=== PATIENT | female | born 1990 | race Caucasian/White ===

== ENCOUNTER 2017-09-25 08:01 | Observation (INO) | payer OTHER ==
[2017-09-25 09:04] VITALS: BP 128/81; PULSE 104
[2017-09-25 09:11] LABS: Amphetamine,Urine NEG. (NEGATIVE); Barbiturate,Urine NEG. (NEGATIVE); Benzodiazepine,Urine NEG. (NEGATIVE); Cocaine,Urine NEG. (NEGATIVE); Methadone,Urine NEG. (NEGATIVE); Opiate,Urine NEG. (NEGATIVE); PCP,Urine NEG. (NEGATIVE); THC,Urine NEG. (NEGATIVE)
[2017-09-25 09:11] LABS: Appearance CLEAR (CLEAR); Bilirubin NEGATIVE (NEGATIVE); Blood NEGATIVE Ery/ul (0-5); Glucose NEGATIVE (NEGATIVE); Ketones SMALL (NEGATIVE); Leukocyte Esterase NEGATIVE (NEGATIVE); Nitrite NEGATIVE (NEGATIVE); Protein,Urine Dip NEGATIVE (Negative); Specific Gravity 1.015 (1.005-1.025); Urobilinogen NORMAL mg/dL (0-1)
== END 2017-09-25 11:35 | disposition home or self-care (01) ==
LOC: OB 08:01
PROVIDERS: ADMIT Family Medicine; ATTEND Family Medicine
DX: Z34.83 Encounter for supervision of other normal pregnancy, third trimester (principal)
CPT/HCPCS: 80307; 81002; G0378

== ENCOUNTER 2017-09-27 15:57 | Observation (INO) | payer OTHER ==
[2017-09-27 16:39] LABS: BASOPHIL % 0.3 % (0.0-0.4); Basophil (Absolute #) 0.02 (0-0.4); Eosinophil % 0.9 % (0.00-5.0); Eosinophil (Absolute #) 0.06 (0-0.5); Granulocyte Absolute (ANC) 4.41 (1.4-6.9); Granulocytes % 65.8 % (36.0-66.0); Hematocrit 33.7 % (35-47); Hemoglobin 10.7 gm/dl (12.0-16.0); Lymphocyte (Absolute #) 1.63 (1.0-4.6); Lymphocytes % 24.3 % (24.0-44.0); Mean Cell Volume 93.9 fl (78-100); Mean Corpuscular Hemoglobin 29.8 pg (26-32); Mean Corpuscular Hgb Concent. 31.8 g/dl (32-36); Mean Platelet Volume 11.9 fl (6-9.5); Monocyte (Absolute #) 0.58 (0.0-1.3); Monocytes % 8.7 % (0.0-12.0); Platelet Count 270 K/mm3 (150-450); Red Blood Count 3.59 M/mm3 (4.1-5.4); Red Cell Distribution Width 13.5 % (11.5-14.0); White Blood Count 6.7 K/mm3 (4.0-10.5)
[2017-09-27 17:30] LABS: ALBUMIN 2.4 g/dL (3.4-5.0); ALKALINE PHOSPHATASE 137 U/L (46-116); ANION GAP 13.4 MEQ/L (5-15); BLOOD UREA NITROGEN 8 mg/dL (9-20); CHLORIDE 105 mEq/L (98-107); Calcium 8.8 mg/dL (8.5-10.1); Carbon Dioxide 24.1 mEq/L (21-32); EST GLOMERULAR FILTRATION RATE > 60 ML/MIN; Glucose 87 MG/DL (70-110); Potassium 3.9 mEq/L (3.5-5.1); SGOT/AST 24 U/L (15-37); SGPT/ALT 13 U/L (12-78); SODIUM 139 mEq/L (136-145); Total Protein 6.9 gm/dL (6.4-8.2)
[2017-09-27 23:25] VITALS: BP 132/72; PULSE 96
== END 2017-09-27 23:10 | disposition home or self-care (01) ==
LOC: OB 15:57
PROVIDERS: ADMIT Family Medicine; ATTEND Family Medicine
DX: Z34.83 Encounter for supervision of other normal pregnancy, third trimester (principal)
CPT/HCPCS: 36415; 59025; 80053; 84550; 85025; G0378

== ENCOUNTER 2017-09-29 14:51 | Inpatient (IN) | payer OTHER ==
[2017-09-29] MEDS ORDERED: Ephedrine Sulfate 50 MG/ML IV PRN (15:02)
[2017-09-29] MEDS ORDERED: Lactated Ringers 1,000 ML IV ONE (15:02)
[2017-09-29] MEDS ORDERED: OB EPIDURAL NAROPIN/SUFENTANIL IN NACL EPIDURAL PRN (15:02)
[2017-09-29 15:22] LABS: Hematocrit 36.3 % (35-47); Hemoglobin 11.6 gm/dl (12.0-16.0); Mean Cell Volume 92.6 fl (78-100); Mean Platelet Volume 11.5 fl (6-9.5); Platelet Count 259 K/mm3 (150-450); Red Blood Count 3.92 M/mm3 (4.1-5.4); Red Cell Distribution Width 13.3 % (11.5-14.0); White Blood Count 11.4 K/mm3 (4.0-10.5)
[2017-09-29 15:29] LABS: Mean Corpuscular Hemoglobin 29.5 pg (26-32)
[2017-09-29] MEDS ORDERED: XYLOCAINE 1% HCL 20 ML MDV IJ PRN (15:29)
[2017-09-29] MEDS ORDERED: PITOCIN 30 UNITS/ LR 500 ML 500 ML IV SCH (15:30)
[2017-09-29] MEDS: Lactated Ringers 1,000 ML IV SCH ×2 (16:10→17:30)
[2017-09-29] MEDS ORDERED: NORCO 5/325 MG PO PRN (18:33)
[2017-09-29] MEDS ORDERED: CORTISONE 1% CREAM TP PRN (18:33)
[2017-09-29] MEDS ORDERED: Anucort-HC SUPPOSITORY PR PRN (18:33)
[2017-09-29] MEDS ORDERED: Ambien 10 MG PO PRN (18:33)
[2017-09-29] MEDS ORDERED: Dulcolax 10 MG SUPP PR PRN (18:33)
[2017-09-29] MEDS ORDERED: Mylicon 80MG PO PRN (18:33)
[2017-09-29] MEDS ORDERED: LANSINOH 40 GM TOP PRN (18:33)
[2017-09-29] MEDS: MOTRIN 400 MG PO PRN (20:13)
[2017-09-29] MEDS: Dermoplast Spray TP PRN (20:39)
[2017-09-29] MEDS: TUCKS TP PRN (20:39)
[2017-09-29] MEDS: Colace 100 MG PO SCH (21:22)
[2017-09-29 22:19] LABS: BAND 4 % (0.0-2.0); Lymphocytes 17 % (24-44); Monocyte 3 % (0.0-12.0); Neutrophils 76 % (36.0-66.0); Platelet Estimate NORMAL (NORMAL); Total Cells Counted 100
[2017-09-30] MEDS: MOTRIN 400 MG PO PRN ×4 (02:00→22:26)
[2017-09-30] MEDS: TYLENOL EXTRA STRENGTH 500 MG PO PRN ×4 (05:22→19:37)
[2017-09-30 06:09] LABS: BASOPHIL % 0.1 % (0.0-0.4); Basophil (Absolute #) 0.01 (0-0.4); Eosinophil % 0.8 % (0.00-5.0); Eosinophil (Absolute #) 0.11 (0-0.5); Granulocyte Absolute (ANC) 9.36 (1.4-6.9); Hematocrit 30.9 % (35-47); Hemoglobin 9.8 gm/dl (12.0-16.0); Lymphocyte (Absolute #) 2.67 (1.0-4.6); Lymphocytes % 20.2 % (24.0-44.0); Mean Cell Volume 94.5 fl (78-100); Mean Corpuscular Hgb Concent. 31.7 g/dl (32-36); Monocyte (Absolute #) 1.04 (0.0-1.3); Monocytes % 7.9 % (0.0-12.0); Platelet Count 208 K/mm3 (150-450); Red Blood Count 3.27 M/mm3 (4.1-5.4); Red Cell Distribution Width 13.4 % (11.5-14.0); White Blood Count 13.2 K/mm3 (4.0-10.5)
[2017-09-30 06:15] LABS: Mean Corpuscular Hemoglobin 29.9 pg (26-32)
[2017-09-30] MEDS: FERREX 150 PO SCH (09:09)
[2017-09-30] MEDS: Colace 100 MG PO SCH ×2 (09:09→22:26)
[2017-10-01] MEDS: TYLENOL EXTRA STRENGTH 500 MG PO PRN ×2 (01:35→10:24)
[2017-10-01] MEDS: Dermoplast Spray TP PRN (01:46)
[2017-10-01] MEDS: TUCKS TP PRN (01:47)
[2017-10-01] MEDS: MOTRIN 400 MG PO PRN ×2 (04:28→13:34)
--- NOTE | 2017-10-01 08:25 | PCM.DS ---
Discharge Summary Date of Admission: 09/29/17 14:51 Admitting Physician: ALLISON MORELOS Consults: Consults on Case 09/29/17 18:34 Notify Physician ROUTINE Primary Care Provider: ALLISON MORELOS Allergies Allergies No Known Drug Allergies Allergy (Verified 09/29/17 21:07) Hospital Summary - Hospital Course Hospital Course: Pt was 27 yo admitted at 39w 5d in active labor with SROM. She received her epidural and had some FHT decelerations that resolved. I came and ruptured the bulging bag and she delivered vigorous female over intact perineum. She has done great post , no complaints. Ready to d/c home today. - Vitals & Intake/Output Vital Signs: Vital Signs Temperature 97.8 F 10/01/17 02:00 Pulse Rate 92 H 10/01/17 02:00 Respiratory Rate 18 10/01/17 02:00 Blood Pressure 136/72 10/01/17 02:00 O2 Sat by Pulse Oximetry Intake & Output: Intake & Output 09/28/17 09/29/17 09/30/17 10/01/17 11:59 11:59 11:59 11:59 Intake Total 3568 2950 Output Total 20 Balance 3548 2950 Weight 166 kg - Lab Result Diagrams: 09/30/17 05:30 Discharge Exam General Appearance: no apparent distress, alert Neurologic Exam: oriented x 3, cooperative Skin Exam: normal color, warm, dry, No rash Ears, Nose, Throat Exam: moist mucous membranes Respiratory Exam: normal breath sounds, lungs clear, No crackles/rales, No rhonchi, No wheezing Cardiovascular Exam: regular rate/rhythm, normal heart sounds, No murmur Gastrointestinal/Abdomen Exam: soft, normal bowel sounds, other (fundus firm at umbilicus) Extremity Exam: No pedal edema, No swelling Back Exam: normal inspection, No rash Final Diagnosis/Problem List - Final Discharge Diagnosis/Problem (1) Vaginal delivery Current Visit: No Status: Acute Assessment & Plan: PPD #2 - home when baby is 48h old. (2) Anemia Current Visit: No Status: Acute Assessment & Plan: Home on iron. - Discharge Disposition: Home, Self-Care Condition: Good Prescriptions: New Docusate Sodium 100 mg [Colace 100 MG] 100 mg PO BID PRN #60 capsule PRN Reason: Constipation Ferrous Sulfate 325 mg PO DAILY #30 tablet Continue Vits W-Ca,Fe,FA(<1Mg) [] 1 tab PO DAILY Follow up with: ALLISON MORELOS [Primary Care Provider] - 1 Week
[2017-10-01] MEDS: FERREX 150 PO SCH (10:24)
[2017-10-01] MEDS: Colace 100 MG PO SCH (10:24)
[2017-10-01 16:40] VITALS: BP 130/83; PULSE 87
== END 2017-10-01 19:45 | disposition home or self-care (01) | DRG 775 ==
LOC: OBSVTOIN 14:51 → OB 14:51
PROVIDERS: ADMIT Family Medicine; ATTEND Family Medicine
PROC: 10E0XZZ Delivery of Products of Conception, External Approach (ICD-10-PCS; principal; 2017-09-29)
DX: O42.02 Full-term premature rupture of membranes, onset of labor within 24 hours of rupture (principal); Z37.0 Single live birth; Z3A.39 39 weeks gestation of pregnancy; D64.9 Anemia, unspecified
CPT/HCPCS: 01967; 36415; 85007; 85025; 85027; G0378; J2590; J2795; A9270-GY

== ENCOUNTER 2017-12-24 18:41 | Emergency (ER) | payer OTHER ==
[2017-12-24 18:55] VITALS: O2SAT 99
[2017-12-24] MEDS ORDERED: BABY ASPIRIN 81 MG CHEW PO ONE (19:35)
[2017-12-24] MEDS ORDERED: Sodium Chloride 0.9% 1000 ML 1,000 ML ONE (19:41)
--- NOTE | 2017-12-24 19:43 | ERPHSYRPT ---
- History of Present Illness Time Seen by Provider: 12/24/17 19:20 Source: patient Exam Limitations: no limitations Patient Subjective Stated Complaint: here for swelling to left lower arm today, breast feeding at present time Triage Nursing Assessment: left lower arm swollen, warm to touch, pt denies any injury Physician History: TWO DAYS AGO PT FELL AT HOME IN THE GARAGE WITH RESULTANT RIGHT HIP/FEMUR PAIN. PT ALSO GOT A PAPER CUT ON HER LEFT INDEX FINGER 2 DAYS AGO AFTER WHICH HER LEFT FOREARM FELT STRANGE AND BECAME SWOLLEN. PT NOTICED RED STREAKING OVER THE LEFT ANTECUBITAL AREA DURING THIS ER VISIT. PT ALSO HAS HAD SHARP INTERMITTENT LEFT ANTERIOR CHEST PAIN FOR THE PAST 2 DAYS LASTING UP TO 2 MINUTES PER EPISODE. Allergies/Adverse Reactions: No Known Drug Allergies Allergy (Verified 12/24/17 18:55) Home Medications: Vits W-Ca,Fe,FA(<1Mg) [] 1 tab PO DAILY 12/30/15 [History] Hx Tetanus, Diphtheria Vaccination/Date Given: Yes Hx Influenza Vaccination/Date Given: No Hx Pneumococcal Vaccination/Date Given: No Immunizations Up to Date: Yes - Review of Systems Constitutional: No Fever Cardiac: Chest Pain Musculoskeletal: Other (LEFT FOREARM SWELLING; RIGHT HIP/THIGH PAIN.) Skin: Other (RED STREAKING OVER THE LEFT ANTECUBITAL AREA) All Other Systems: Reviewed and Negative - Past Medical History Pertinent Past Medical History: No Respiratory History: Asthma - Past Surgical History Past Surgical History: No - Social History Smoking Status: Never smoker Exposure to second hand smoke: No Drug Use: none Patient Lives Alone: No - Female History Hx Last Menstrual Period: 2016 Hx Now: (unsure) - Nursing Vital Signs Nursing Vital Signs: Initial Vital Signs Temperature 98.0 F 12/24/17 18:51 Pulse Rate 107 H 12/24/17 18:51 Respiratory Rate 16 12/24/17 18:51 Blood Pressure 158/92 12/24/17 18:51 O2 Sat by Pulse Oximetry 99 12/24/17 18:51 Pain Scale Pain Intensity 0 - Physical Exam General Appearance: alert Eye Exam: PERRL/EOMI Ears, Nose, Throat Exam: pharynx normal, moist mucous membranes Neck Exam: normal inspection Respiratory Exam: lungs clear Cardiovascular Exam: normal heart sounds Gastrointestinal/Abdomen Exam: soft, normal bowel sounds Back Exam: normal range of motion Extremity Exam: normal range of motion, tenderness (MILD TENDERNESS AND EDEMA OVER THE LEFT FOREARM ) Neurologic Exam: alert, cooperative Lymphatic Exam: other (RED STREAKING OVER THE ANTECUBITAL AREA) SpO2 Interpretation: normal SpO2: 99 Oxygen Delivery: Room Air - Course Nursing assessment & vital signs reviewed: Yes EKG Interpreted by Me: RATE (97), Sinus Rhythm, NORMAL AXIS, NORMAL INTERVALS - CT Exams Chest CT Interpretation: Tele-radiologist Report (NO EVIDENCE OF PULMONARY EMBOLISM.) - Radiology Ultrasound Exam Left Venous Upper Extremity Ultrasound: Other (TECH REPORT: NO BLOOD CLOT SEEN.) Ordered Tests: Active Orders 24 hr Category Date Time Status Pediatric Assistant STAT Care 12/24/17 19:34 Active EKG-ER Only STAT Care 12/24/17 19:33 Active CHEST WITH CONTRAST [CT] Stat Exams 12/24/17 21:08 Taken FEMUR Stat Exams 12/24/17 19:35 Taken FOREARM Stat Exams 12/24/17 19:36 Taken PELVIS (1 OR 2 VIEWS) Stat Exams 12/24/17 19:35 Taken VENOUS UNILAT/LIMITED EXTREMIT [US] Stat Exams 12/24/17 21:00 Taken AMYLASE Stat Lab 12/24/17 19:58 Completed BLOOD CULTURE Stat Lab 12/24/17 21:28 Received CBC W DIFF Stat Lab 12/24/17 19:58 Completed CMP Stat Lab 12/24/17 19:58 Completed CULTURE,URINE Stat Lab 12/24/17 20:38 Received D-DIMER QUANTITATION Stat Lab 12/24/17 19:58 Completed HCG QUALITATIVE,SERUM Stat Lab 12/24/17 20:31 Completed LIPASE Stat Lab 12/24/17 19:58 Completed MAGNESIUM Stat Lab 12/24/17 19:58 Completed TROPONIN Q3H Lab 12/24/17 19:58 Completed UA W/ MICROSCOPIC Stat Lab 12/24/17 20:38 Completed Medication Summary Generic Name Dose Route Start Last Admin Trade Name Freq PRN Reason Stop Dose Admin Sodium Chloride 1,000 mls @ 100 mls/hr 12/24/17 19:45 12/24/17 21:35 Sodium Chloride 0.9% 1000 Ml IV 01/23/18 19:44 100 mls/hr .Q10H LANI Administration Discontinued Medications Generic Name Dose Route Start Last Admin Trade Name Freq PRN Reason Stop Dose Admin Aspirin 324 mg 12/24/17 19:35 12/24/17 22:58 Baby Aspirin 81 Mg Chew PO 12/24/17 19:36 Not Given STAT ONE Clindamycin HCl/Dextrose 600 mg in 50 mls @ 100 mls/hr 12/24/17 21:35 21:45 Clindamycin-D5w 600 Mg/50 Ml IV 12/24/17 22:04 100 mls/hr STAT STA Administration Clindamycin HCl/Dextrose Confirm 12/24/17 21:38 Clindamycin-D5w 600 Mg/50 Ml Administered 12/24/17 21:39 Dose 600 mg in 50 mls @ ud IV .STK-MED ONE Lab/Rad Data: Laboratory Result Diagrams 12/24/17 19:58 12/24/17 19:58 Laboratory Results 12/24/17 12/24/17 12/24/17 Range/Units 20:38 20:31 19:58 WBC (4.0-10.5) K/mm3 RBC (4.1-5.4) M/mm3 Hgb (12.0-16.0) gm/dl Hct (35-47) % MCV (78-100) fl MCH (26-32) pg MCHC (32-36) g/dl RDW (11.5-14.0) % Plt Count (150-450) K/mm3 MPV (6-9.5) fl Gran % (36.0-66.0) % Eos # (Auto) (0-0.5) Absolute Lymphs (auto) (1.0-4.6) Absolute Monos (auto) (0.0-1.3) Lymphocytes % (24.0-44.0) % Monocytes % (0.0-12.0) % Eosinophils % (0.00-5.0) % Basophils % (0.0-0.4) % Absolute Granulocytes (1.4-6.9) Basophils # (0-0.4) D-Dimer (215-500) ng/mL Sodium (137-145) mmol/L Potassium (3.5-5.1) mmol/L Chloride (98-107) mmol/L Carbon Dioxide (22-30) mmol/L Anion Gap (5-15) MEQ/L BUN (7-17) mg/dL Creatinine (0.52-1.04) mg/dL Estimated GFR ML/MIN Glucose (74-106) mg/dL Calcium (8.4-10.2) mg/dL Magnesium (1.6-2.3) mg/dL Total Bilirubin (0.2-1.3) mg/dL AST (14-36) U/L ALT (0-35) U/L Alkaline Phosphatase (38-126) U/L Troponin I < 0.012 (0.000-0.034) ng/mL Serum Total Protein (6.3-8.2) g/dL Albumin (3.5-5.0) g/dL Amylase (30-110) U/L Lipase (23-300) U/L Serum , Qual NEGATIVE (Negative) Ur Collection Type VOID Urine Color YELLOW (YELLOW) Urine Appearance CLEAR (CLEAR) Urine pH 6.0 (5-6) Ur Specific [place] 1.015 (1.005-1.025) Urine Protein NEGATIVE (Negative) Urine Ketones NEGATIVE (NEGATIVE) Urine Blood TRACE NON-HEM (0-5) Paolo/ul Urine Nitrite NEGATIVE (NEGATIVE) Urine Bilirubin NEGATIVE (NEGATIVE) Urine Urobilinogen NORMAL (0-1) mg/dL Ur Leukocyte Esterase TRACE (NEGATIVE) Urine Microscopic RBC 2-5 (0-2) /HPF Urine Microscopic WBC 5-10 (0-5) /HPF Ur Epithelial Cells MODERATE (FEW) /HPF Urine Bacteria MODERATE (NEGATIVE) /HPF Urine Mucus SLIGHT (NEGATIVE) /HPF Urine Culture Reflexed YES (NO) Urine Glucose NEGATIVE (NEGATIVE) mg/dL Specimen Received 12/24/17 2030 12/24/17 12/24/17 12/24/17 Range/Units 19:58 19:58 19:58 WBC 5.3 (4.0-10.5) K/mm3 RBC 4.57 (4.1-5.4) M/mm3 Hgb 13.8 (12.0-16.0) gm/dl Hct 41.2 (35-47) % MCV 90.2 (78-100) fl MCH 30.2 (26-32) pg MCHC 33.5 (32-36) g/dl RDW 11.8 (11.5-14.0) % Plt Count 240 (150-450) K/mm3 MPV 10.6 H (6-9.5) fl Gran % 51.0 (36.0-66.0) % Eos # (Auto) 0.15 (0-0.5) Absolute Lymphs (auto) 1.89 (1.0-4.6) Absolute Monos (auto) 0.52 (0.0-1.3) Lymphocytes % 36.0 (24.0-44.0) % Monocytes % 9.9 (0.0-12.0) % Eosinophils % 2.9 (0.00-5.0) % Basophils % 0.2 (0.0-0.4) % Absolute Granulocytes 2.68 (1.4-6.9) Basophils # 0.01 (0-0.4) D-Dimer 789.42 H* (215-500) ng/mL Sodium 143 (137-145) mmol/L Potassium 4.4 (3.5-5.1) mmol/L Chloride 103 (98-107) mmol/L Carbon Dioxide 29 (22-30) mmol/L Anion Gap 15.3 H (5-15) MEQ/L BUN 18 H (7-17) mg/dL Creatinine 0.87 (0.52-1.04) mg/dL Estimated GFR > 60.0 ML/MIN Glucose 107 H (74-106) mg/dL Calcium 9.6 (8.4-10.2) mg/dL Magnesium 1.8 (1.6-2.3) mg/dL Total Bilirubin 0.30 (0.2-1.3) mg/dL AST 24 (14-36) U/L ALT 34 (0-35) U/L Alkaline Phosphatase 79 (38-126) U/L Troponin I (0.000-0.034) ng/mL Serum Total Protein 7.9 (6.3-8.2) g/dL Albumin 4.4 (3.5-5.0) g/dL Amylase 85 (30-110) U/L Lipase 99 (23-300) U/L Serum , Qual (Negative) Ur Collection Type Urine Color (YELLOW) Urine Appearance (CLEAR) Urine pH (5-6) Ur Specific [place] (1.005-1.025) Urine Protein (Negative) Urine Ketones (NEGATIVE) Urine Blood (0-5) Paolo/ul Urine Nitrite (NEGATIVE) Urine Bilirubin (NEGATIVE) Urine Urobilinogen (0-1) mg/dL Ur Leukocyte Esterase (NEGATIVE) Urine Microscopic RBC (0-2) /HPF Urine Microscopic WBC (0-5) /HPF Ur Epithelial Cells (FEW) /HPF Urine Bacteria (NEGATIVE) /HPF Urine Mucus (NEGATIVE) /HPF Urine Culture Reflexed (NO) Urine Glucose (NEGATIVE) mg/dL Specimen Received - Departure Time of Disposition: 01:13 Departure Disposition: Home Clinical Impression: LYMPHANGITIS OF LEFT FOREARM, UTI, CHEST PAIN, RIGHT HIP SPRAIN Condition: Stable Critical Care Time: No Referrals: ALLISON MORELOS [Primary Care Provider] - Instructions: Urinary Tract Infections in Adults, Chest Pain Additional Instructions: FOLLOW UP WITH PRIVATE DOCTOR TOMORROW. ELEVATE LEFT FOREARM ABOVE HEART LEVEL FOR 48 HOURS. Prescriptions: Clindamycin HCl 300 mg PO Q6H #40 capsule
[2017-12-24] MEDS ORDERED: Sodium Chloride 0.9% 1000 ML 1,000 ML IV SCH (19:45)
[2017-12-24 20:02] LABS: BASOPHIL % 0.2 % (0.0-0.4); Basophil (Absolute #) 0.01 (0-0.4); Eosinophil % 2.9 % (0.00-5.0); Eosinophil (Absolute #) 0.15 (0-0.5); Granulocyte Absolute (ANC) 2.68 (1.4-6.9); Hematocrit 41.2 % (35-47); Hemoglobin 13.8 gm/dl (12.0-16.0); Lymphocyte (Absolute #) 1.89 (1.0-4.6); Mean Cell Volume 90.2 fl (78-100); Mean Corpuscular Hemoglobin 30.2 pg (26-32); Mean Corpuscular Hgb Concent. 33.5 g/dl (32-36); Mean Platelet Volume 10.6 fl (6-9.5); Monocyte (Absolute #) 0.52 (0.0-1.3); Monocytes % 9.9 % (0.0-12.0); Platelet Count 240 K/mm3 (150-450); Red Blood Count 4.57 M/mm3 (4.1-5.4); Red Cell Distribution Width 11.8 % (11.5-14.0); White Blood Count 5.3 K/mm3 (4.0-10.5)
[2017-12-24 20:23] LABS: ALBUMIN 4.4 g/dL (3.5-5.0); ALKALINE PHOSPHATASE 79 U/L (38-126); AMYLASE 85 U/L (30-110); ANION GAP 15.3 MEQ/L (5-15); BLOOD UREA NITROGEN 18 mg/dL (7-17); CHLORIDE 103 mmol/L (98-107); Calcium 9.6 mg/dL (8.4-10.2); Carbon Dioxide 29 mmol/L (22-30); Creatinine 1 0.87 mg/dL (0.52-1.04); Glucose 107 mg/dL (74-106); LIPASE 99 U/L (23-300); Potassium 4.4 mmol/L (3.5-5.1); SGOT/AST 24 U/L (14-36); SGPT/ALT 34 U/L (0-35); SODIUM 143 mmol/L (137-145); Total Protein 7.9 g/dL (6.3-8.2)
[2017-12-24 20:55] LABS: Appearance CLEAR (CLEAR)
[2017-12-24 20:56] LABS: Bacteria MODERATE /HPF (NEGATIVE); Bilirubin NEGATIVE (NEGATIVE); Blood TRACE NON-HEM Ery/ul (0-5); Epithelial Cells MODERATE /HPF (FEW); Glucose NEGATIVE (NEGATIVE); Ketones NEGATIVE (NEGATIVE); Leukocyte Esterase TRACE (NEGATIVE); Mucus SLIGHT /HPF (NEGATIVE); Nitrite NEGATIVE (NEGATIVE); Protein,Urine Dip NEGATIVE (Negative); Specific Gravity 1.015 (1.005-1.025); Urobilinogen NORMAL mg/dL (0-1)
[2017-12-24] MEDS ORDERED: CLINDAMYCIN-D5W 600 MG/50 ML*** 600 MG/50 ML BAG IV STA (21:35)
[2017-12-24] MEDS ORDERED: CLINDAMYCIN-D5W 600 MG/50 ML*** 600 MG/50 ML BAG IV ONE (21:38)
[2017-12-24 22:53] VITALS: BP 122/71; PULSE 90
[2017-12-25] MEDS ORDERED: CLEOCIN 150 MG CAPSULE PO ONE (01:14)
[2017-12-25] MEDS ORDERED: CLEOCIN 150 MG CAPSULE ONE (01:19)
--- NOTE | 2017-12-25 07:54 | XRAY ---
Indication: Left forearm pain/edema. Two-dimensional sonogram and color Doppler imaging of the major venous vessels of the left upper extremity was performed. Comparison: None No thrombus seen in the visualized left internal jugular, subclavian, axillary, brachial, basilic, cephalic, median cubital, radial, and ulnar veins. Veins demonstrate normal compressibility. Venous waveforms are normal. Impression: Left upper extremity negative for DVT. Comment: Preliminary report was given.
--- NOTE | 2017-12-25 08:13 | XRAY ---
Indication: Chest pain. Elevated d-dimer. Multiple contiguous axial images obtained through the chest using 80 cc Isovue 370 contrast and PE protocol. Comparison: None There is good opacification of the pulmonary arteries. No filling defect or pulmonary embolus. Heart is not enlarged. Aorta is normal in course and caliber. No pathologic mediastinal/hilar lymphadenopathy. Examination of the lung parenchyma demonstrates minimal lingular and right middle lobe fibrosis/scarring. No suspicious pulmonary mass, infiltrate, or effusion. Bony thorax intact. Limited upper abdomen unremarkable. Impression: Negative pulmonary embolus. No acute cardiopulmonary abnormalities. Comment: Preliminary interpretation was made by [facility]. No discrepancy. CTDI 14.17
--- NOTE | 2017-12-25 08:14 | XRAY ---
Indication: Pain and bruising following fall. Comparison: None 2 views of the right femur demonstrates normal bones, articulation, and soft tissues.
--- NOTE | 2017-12-25 08:15 | XRAY ---
Indication: Pain and bruising following fall. Comparison: None 2 views of the left forearm demonstrates normal bones, articulation, and soft tissues.
--- NOTE | 2017-12-25 08:15 | XRAY ---
Indication: Pain and bruising following fall. Comparison: None AP pelvis demonstrates normal bones, articulation, and soft tissues.
== END 2017-12-25 01:26 | disposition home or self-care (01) ==
LOC: ED 18:41
DX: I89.1 Lymphangitis (principal); N39.0 Urinary tract infection, site not specified; R07.9 Chest pain, unspecified; M79.89 Other specified soft tissue disorders; S73.101A Unspecified sprain of right hip, initial encounter; W19.XXXA Unspecified fall, initial encounter
CPT/HCPCS: 36415; 71260; 72170; 73090; 73552; 80053; 81000; 82150; 83690; 83735; 84484; 84703; 85025; 85379; 87040; 87086; 93005; 93041; 93971; 96360; 96365; 99284; A9270-GY

== ENCOUNTER 2019-04-21 16:12 | Observation (INO) | payer OTHER ==
[2019-04-21 16:50] VITALS: BP 120/69; PULSE 85
--- NOTE | 2019-04-21 17:08 | XRAY ---
Indication: Evaluate KAY. Gestational diabetes. Limited OB ultrasound performed to evaluate KAY. There is a single viable intrauterine with heart rate 129 BPM. Four-quadrant KAY is 28.4 cm favoring polyhydramnios. This was 21.2 cm on April 12, 2019.
== END 2019-04-21 17:15 | disposition home or self-care (01) ==
LOC: OB 16:12
PROVIDERS: ADMIT Family Medicine; ATTEND Family Medicine
DX: Z34.83 Encounter for supervision of other normal pregnancy, third trimester (principal)
CPT/HCPCS: 59025; 76815; G0378

== ENCOUNTER 2019-04-26 09:58 | Observation (INO) | payer OTHER ==
[2019-04-26 10:54] VITALS: BP 122/72; PULSE 100
--- NOTE | 2019-04-26 12:08 | XRAY ---
Indication: Evaluate KAY. Limited OB ultrasound performed to evaluate KAY. There is a single intrauterine . Four-quadrant KAY is 19.9 cm, previously 28.4 cm on April 21, 2019.
== END 2019-04-26 11:52 | disposition home or self-care (01) ==
LOC: OB 09:58
PROVIDERS: ADMIT Family Medicine; ATTEND Family Medicine
DX: Z34.83 Encounter for supervision of other normal pregnancy, third trimester (principal)
CPT/HCPCS: 59025; 76815; G0378

== ENCOUNTER 2019-04-28 13:41 | Observation (INO) | payer OTHER ==
[2019-04-28 14:01] VITALS: BP 120/64; PULSE 92
== END 2019-04-28 16:00 | disposition home or self-care (01) ==
LOC: OB 13:41
PROVIDERS: ADMIT Family Medicine; ATTEND Family Medicine
DX: Z34.83 Encounter for supervision of other normal pregnancy, third trimester (principal)
CPT/HCPCS: 59025; G0378

== ENCOUNTER 2019-05-02 16:50 | Observation (INO) | payer OTHER ==
[2019-05-02 17:19] VITALS: PULSE 85
[2019-05-02 18:06] VITALS: BP 136/75
== END 2019-05-02 17:58 | disposition home or self-care (01) ==
LOC: OB 16:50
PROVIDERS: ADMIT Family Medicine; ATTEND Family Medicine
DX: Z34.83 Encounter for supervision of other normal pregnancy, third trimester (principal)
CPT/HCPCS: 59025; G0378

== ENCOUNTER 2019-05-04 10:59 | Observation (INO) | payer OTHER ==
[2019-05-04 12:04] VITALS: BP 110/59; PULSE 82
--- NOTE | 2019-05-04 13:02 | XRAY ---
Indication: Evaluate KAY. Gestational diabetes. Limited OB ultrasound performed to evaluate KAY. There is a single viable intrauterine with heart rate 139 bpm. 4 quadrant KAY is 28.1 cm, previously 19.9 cm April 27, 2019.
--- NOTE | 2019-05-04 14:44 | XRAY ---
Indication: Oligohydramnios. well-being. 2-dimensional OB ultrasound performed. Comparison: April 27, 2019. Again there is a single viable intrauterine in cephalic presentation. heart rate 139 bpm. anatomy previously documented. Again anterior placenta without abruption/previa. BPD measures 8.93 cm corresponding to 36 weeks 1 day. HC measures 32.22 cm corresponding to 36 weeks 3 days. AC measures 36.72 cm corresponding to 40 weeks 5 days. FL measures 7.63 cm corresponding to 39 weeks 0 days. KAY is 29.8 cm, previously 19.9 cm. Impression: Again single viable intrauterine with mean gestational age 38 weeks 1 day. There has been progression of with fetus now measuring 5 days smaller since last exam. Also new finding polyhydramnios.
--- NOTE | 2019-05-04 14:47 | XRAY ---
Indication: well-being. Ultrasound biophysical profile study was performed. Comparison: None There is a single viable intrauterine intrauterine with heart rate 139 bpm. Four-quadrant KAY is 29.8 cm, largest pocket 12.1 cm. 2 points given for movement, breathing, tone, and qualitative amniotic fluid volume. Impression: Total biophysical profile score is 8 out of 8.
== END 2019-05-04 14:32 | disposition home or self-care (01) ==
LOC: OB 10:59
PROVIDERS: ADMIT Family Medicine; ATTEND Family Medicine
DX: Z34.83 Encounter for supervision of other normal pregnancy, third trimester (principal)
CPT/HCPCS: 59025; 76805; 76815; 76818; G0378

== ENCOUNTER 2019-05-08 10:19 | Inpatient (IN) | payer OTHER ==
[2019-05-08] MEDS ORDERED: BRETHINE 1 MG/ML SQ PRN (23:25)
[2019-05-08] MEDS ORDERED: TYLENOL EXTRA STRENGTH 500 MG PO PRN (23:26)
[2019-05-08] MEDS ORDERED: XYLOCAINE 1% HCL 20 ML MDV IJ PRN (23:26)
[2019-05-08] MEDS ORDERED: Zofran 4 MG/2 ML VIAL IV PRN (23:26)
[2019-05-08] MEDS ORDERED: Lactated Ringers 1,000 ML IV SCH (23:30)
[2019-05-08] MEDS ORDERED: PITOCIN 30 UNITS/ LR 500 ML 500 ML IV SCH (23:30)
[2019-05-09 00:12] LABS: BASOPHIL % 0.1 % (0.0-0.4); Basophil (Absolute #) 0.01 (0-0.4); Eosinophil % 1.5 % (0.00-5.0); Eosinophil (Absolute #) 0.11 (0-0.5); Granulocyte Absolute (ANC) 4.62 (1.4-6.9); Granulocytes % 61.6 % (36.0-66.0); Hematocrit 31.8 % (35-47); Hemoglobin 10.2 gm/dl (12.0-16.0); Lymphocyte (Absolute #) 2.19 (1.0-4.6); Lymphocytes % 29.2 % (24.0-44.0); Mean Cell Volume 92.2 fl (78-100); Mean Corpuscular Hgb Concent. 32.1 g/dl (32-36); Mean Platelet Volume 12.4 fl (6-9.5); Monocyte (Absolute #) 0.57 (0.0-1.3); Monocytes % 7.6 % (0.0-12.0); Platelet Count 226 K/mm3 (150-450); Red Blood Count 3.45 M/mm3 (4.1-5.4); Red Cell Distribution Width 13.1 % (11.5-14.0); White Blood Count 7.5 K/mm3 (4.0-10.5)
[2019-05-09 00:16] LABS: Mean Corpuscular Hemoglobin 29.5 pg (26-32)
[2019-05-09 00:29] LABS: Amphetamine,Urine NEGATIVE (NEGATIVE); Barbiturate,Urine NEGATIVE (NEGATIVE); Benzodiazepine,Urine NEGATIVE (NEGATIVE); Cocaine,Urine NEGATIVE (NEGATIVE); Methadone,Urine NEGATIVE (NEGATIVE); Opiate,Urine NEGATIVE (NEGATIVE); PCP,Urine NEGATIVE (NEGATIVE); THC,Urine NEGATIVE (NEGATIVE)
[2019-05-09] MEDS ORDERED: Ephedrine Sulfate 50 MG/ML IV PRN (10:18)
[2019-05-09] MEDS ORDERED: Lactated Ringers 1,000 ML IV ONE ×3 (10:18→14:20)
[2019-05-09] MEDS ORDERED: OB EPIDURAL NAROPIN/SUFENTANIL IN NACL EPIDURAL PRN (10:18)
[2019-05-09] MEDS ORDERED: XYLOCAINE 2%/Epi 1:200000 20ML VIAL MPF ONE (10:26)
[2019-05-09] MEDS ORDERED: Sensorcaine 0.25% 10 ML ONE (10:56)
[2019-05-09] MEDS ORDERED: Lactated Ringers 1,000 ML IV SCH (13:00)
[2019-05-09] MEDS ORDERED: BICITRA 30 ML CUP PO SCH (13:00)
[2019-05-09] MEDS ORDERED: CEFAZOLIN 2 GM-D5W BAG** 2 GM/50 ML ML IV SCH (13:00)
[2019-05-09] MEDS ORDERED: Reglan 10 MG/2 ML IV SCH (13:00)
[2019-05-09] MEDS ORDERED: Pepcid 20 MG VIAL IV SCH (13:00)
[2019-05-09 13:11] LABS: INR 0.96 (0.8-3.0); PROTIME 10.8 SECONDS (9.95-12.35)
--- NOTE | 2019-05-09 13:23 | XRAY ---
Indication: Evaluate presentation. Limited OB ultrasound performed to evaluate presentation is currently in cephalic presentation.
[2019-05-09] MEDS ORDERED: Pitocin 10 UNITS/ML ONE ×3 (13:24→14:22)
[2019-05-09] MEDS ORDERED: Xylocaine-Mpf 2% 5 Ml Vial ONE ×2 (13:24→13:26)
[2019-05-09] MEDS ORDERED: Nesacaine 3% -Mpf*** 20ML SDV ONE (13:24)
[2019-05-09] MEDS ORDERED: Astramorph-Pf 5 MG/10 ML ONE (13:25)
[2019-05-09] MEDS ORDERED: KEFZOL 1 GM ONE ×2 (13:33)
[2019-05-09] MEDS ORDERED: HOLD NARCOTIC ANALGESICS AND SEDATIVES X24 HR MC PRN (13:38)
[2019-05-09] MEDS ORDERED: Versed 2 MG/2 ML Injection ONE (13:41)
[2019-05-09 13:44] LABS: ABO TYPING A; Antibody Screen NEGATIVE (NEGATIVE); RH TYPING POSITIVE
[2019-05-09] MEDS ORDERED: MARCAINE 0.5%-EPI 1:200,000 VL IJ ONE (13:47)
[2019-05-09 15:31] LABS: Appearance SLIGHTLY CLOUDY (CLEAR); Bacteria RARE /HPF (NEGATIVE); Bilirubin NEGATIVE (NEGATIVE); Blood NEGATIVE Ery/ul (0-5); Glucose NEGATIVE (NEGATIVE); Ketones NEGATIVE (NEGATIVE); Leukocyte Esterase NEGATIVE (NEGATIVE); Mucus SLIGHT /HPF (NEGATIVE); Nitrite NEGATIVE (NEGATIVE); Non-Squamous Epithelial Cells RARE /HPF (FEW); Protein,Urine Dip 100 (Negative); Specific Gravity 1.016 (1.005-1.025); Urobilinogen NEGATIVE mg/dL (0-1)
--- NOTE | 2019-05-09 15:43 | OP ---
SURGERY DATE/TIME: 05/09/2019 1318 PREOPERATIVE DIAGNOSIS: malpresentation. POSTOPERATIVE DIAGNOSES: 1) malpresentation. 2) Uterine incision extension, left lower uterus. PROCEDURE: Primary low transverse section. SURGEON: Casper Villalba M.D. ANESTHESIA: Epidural by Azael Lobo CRNA. ESTIMATED BLOOD LOSS: 600 cc. IV FLUIDS: 1200 cc of Crystalloid. URINE OUTPUT: 100 ml of clear straw-colored urine. SPECIMEN: Placenta was sent for pathology. DESCRIPTION OF PROCEDURE: After informed, written consent was obtained, the patient was taken to the operating room. She had her previously placed laboring epidural dosed and was prepped and draped in usual sterile fashion. Adequate level of anesthesia was assessed. A low transverse skin incision was made by knife and carried down through the subcutaneous fat to the level of the fascia. The fascia was nicked on both sides of the midline in horizontal fashion using curved Kovacs scissors. The superior free edge of the fascia was grasped with Lilliana clamps and the underlying rectus muscles were dissected free. The same was repeated inferiorly. The peritoneal cavity was opened in blunt fashion and extended horizontally. A bladder flap was then created and reflected over the lower uterine segment. Horizontal uterine incision was made by knife and carried down to the level of the amniotic membranes which were carefully artificially ruptured. A viable male was delivered with what appeared to be a face presentation as well as a hand which was reduced prior to delivery. He also had nuchal cord x1 which was loose and reduced. The cord was clamped and cut and then Dr. Ritchie robed/scrubbed at that time to care for the baby. The uterus was exteriorized and uterine cavity was sponge curetted clean with lap sponge. The uterine incision was closed with #1 chromic in running locked fashion in two layers with good closure. There was an area of extension in the left lower uterus which extended to the lower uterine segment requiring multiple figure-of-8 sutures to provide good closure. There was some minimal oozing following the placement of these therefore a piece of Surgifoam was placed over this area and was inspected multiple times and noted to have good hemostasis at that time with some minimal oozing. Posterior cul-de-sac was wiped free of blood and clot. The uterus was returned to the peritoneal cavity. Again, this area was inspected. There was some oozing noted again in the area of the extension so another figure-of-8 with 0 Vicryl was placed at that time. Again, Surgifoam was then secured in the area and there was what appeared to be good hemostasis at that time. No other complications were noted. Next, the fascia was closed with 0 Vicryl in a running fashion with good closure and good hemostasis were achieved. The subcutaneous fat was irrigated with warm, sterile saline and any areas of bleeding were then cauterized with electrocautery. Finally, the skin layer was closed with 4-0 undyed Vicryl in a running subcuticular fashion. Steri-Strips and occlusive dressing were placed over the incision. The patient was transferred to the recovery room in good condition. Vital signs were stable throughout the entirety of the procedure.
[2019-05-09] MEDS ORDERED: DEMEROL 50 MG IV PRN (16:38)
[2019-05-09] MEDS ORDERED: MORPHINE SULFATE 2 MG INJ IV PRN (16:38)
[2019-05-09] MEDS ORDERED: Narcan 0.4 MG/ML IV PRN (16:38)
[2019-05-09] MEDS ORDERED: BENADRYL 50 MG/ML IV PRN (16:38)
[2019-05-09] MEDS ORDERED: Anucort-HC SUPPOSITORY PR PRN (16:38)
[2019-05-09] MEDS ORDERED: Dulcolax 10 MG SUPP PR PRN (16:38)
[2019-05-09] MEDS ORDERED: CLARITIN 10 MG PO PRN (16:38)
[2019-05-09] MEDS ORDERED: LANSINOH 40 GM TOP PRN (16:38)
[2019-05-09] MEDS ORDERED: TUCKS TP PRN (16:38)
[2019-05-09] MEDS ORDERED: CORTISONE 1% CREAM TP PRN (16:38)
[2019-05-09] MEDS ORDERED: Nubain 10 MG/ML IV PRN (16:38)
[2019-05-09] MEDS: MOTRIN 400 MG PO PRN ×2 (17:13→23:09)
[2019-05-09] MEDS: Dextrose 5%-Lr IV Solution 1000 ML 1,000 ML IV SCH (17:21)
[2019-05-09 20:24] LABS: BASOPHIL % 0.1 % (0.0-0.4); Basophil (Absolute #) 0.01 (0-0.4); Eosinophil % 0.2 % (0.00-5.0); Eosinophil (Absolute #) 0.02 (0-0.5); Granulocyte Absolute (ANC) 8.75 (1.4-6.9); Granulocytes % 77.8 % (36.0-66.0); Hematocrit 25.8 % (35-47); Hemoglobin 8.2 gm/dl (12.0-16.0); Lymphocyte (Absolute #) 1.59 (1.0-4.6); Lymphocytes % 14.2 % (24.0-44.0); Mean Cell Volume 93.1 fl (78-100); Mean Corpuscular Hemoglobin 29.6 pg (26-32); Mean Corpuscular Hgb Concent. 31.8 g/dl (32-36); Mean Platelet Volume 11.8 fl (6-9.5); Monocyte (Absolute #) 0.86 (0.0-1.3); Monocytes % 7.7 % (0.0-12.0); Platelet Count 167 K/mm3 (150-450); Red Blood Count 2.77 M/mm3 (4.1-5.4); Red Cell Distribution Width 12.7 % (11.5-14.0); White Blood Count 11.2 K/mm3 (4.0-10.5)
[2019-05-09] MEDS: Colace 100 MG PO SCH (21:23)
[2019-05-09] MEDS: PERCOCET TABLET 5/325MG PO PRN (21:23)
[2019-05-09] MEDS ORDERED: Cervidil 10 MG VAG SCH (22:00)
[2019-05-10] MEDS: Dextrose 5%-Lr IV Solution 1000 ML 1,000 ML IV SCH (01:28)
[2019-05-10] MEDS: PERCOCET TABLET 5/325MG PO PRN ×3 (04:59→13:34)
[2019-05-10] MEDS: MOTRIN 400 MG PO PRN ×3 (05:00→18:39)
[2019-05-10] MEDS: FERREX 150 PO SCH (09:25)
[2019-05-10] MEDS: Mylicon 80MG PO PRN ×2 (09:25→21:47)
[2019-05-10] MEDS: Colace 100 MG PO SCH ×2 (09:25→21:14)
[2019-05-10 09:32] LABS: Basophil (Absolute #) 0 (0-0.4); Eosinophil % 1.6 % (0.00-5.0); Eosinophil (Absolute #) 0.11 (0-0.5); Granulocyte Absolute (ANC) 4.84 (1.4-6.9); Granulocytes % 70.1 % (36.0-66.0); Hematocrit 22.9 % (35-47); Hemoglobin 7.2 gm/dl (12.0-16.0); Lymphocyte (Absolute #) 1.28 (1.0-4.6); Lymphocytes % 18.6 % (24.0-44.0); Mean Cell Volume 94.2 fl (78-100); Mean Corpuscular Hemoglobin 29.6 pg (26-32); Mean Corpuscular Hgb Concent. 31.4 g/dl (32-36); Mean Platelet Volume 11.7 fl (6-9.5); Monocyte (Absolute #) 0.67 (0.0-1.3); Monocytes % 9.7 % (0.0-12.0); Platelet Count 153 K/mm3 (150-450); Red Blood Count 2.43 M/mm3 (4.1-5.4); White Blood Count 6.9 K/mm3 (4.0-10.5)
[2019-05-10] MEDS ORDERED: Ambien 10 MG PO PRN (16:38)
[2019-05-10] MEDS ORDERED: NORCO 5/325 MG PO PRN (16:38)
[2019-05-10] MEDS: NORCO 5/325 MG PO PRN (21:15)
[2019-05-11] MEDS: MOTRIN 400 MG PO PRN ×3 (01:22→21:00)
[2019-05-11] MEDS: NORCO 5/325 MG PO PRN ×5 (01:23→21:01)
[2019-05-11 05:04] LABS: BASOPHIL % 0.1 % (0.0-0.4); Basophil (Absolute #) 0.01 (0-0.4); Eosinophil (Absolute #) 0.34 (0-0.5); Granulocyte Absolute (ANC) 5.23 (1.4-6.9); Granulocytes % 61.4 % (36.0-66.0); Hematocrit 21.7 % (35-47); Lymphocyte (Absolute #) 2.14 (1.0-4.6); Lymphocytes % 25.1 % (24.0-44.0); Mean Cell Volume 94.8 fl (78-100); Mean Corpuscular Hgb Concent. 30.9 g/dl (32-36); Mean Platelet Volume 11.6 fl (6-9.5); Monocytes % 9.4 % (0.0-12.0); Platelet Count 160 K/mm3 (150-450); Red Blood Count 2.29 M/mm3 (4.1-5.4); Red Cell Distribution Width 13.1 % (11.5-14.0); White Blood Count 8.5 K/mm3 (4.0-10.5)
[2019-05-11 05:10] LABS: Hemoglobin 6.7 gm/dl (12.0-16.0); Mean Corpuscular Hemoglobin 29.2 pg (26-32)
[2019-05-11] MEDS: FERREX 150 PO SCH (08:28)
[2019-05-11] MEDS: Colace 100 MG PO SCH ×2 (08:28→21:01)
[2019-05-11] MEDS ORDERED: Sodium Chloride 0.9% 1000 ML 1,000 ML IV SCH (08:45)
[2019-05-11 10:04] LABS: ABO TYPING A; Antibody Screen NEGATIVE (NEGATIVE); RH TYPING POSITIVE
[2019-05-11 10:05] LABS: CROSS MATCH (PRBC) COMPATIBLE (COMPATIBLE)
[2019-05-11] MEDS: Mylicon 80MG PO PRN (21:09)
[2019-05-11 21:18] LABS: BASOPHIL % 0.1 % (0.0-0.4); Basophil (Absolute #) 0.01 (0-0.4); Eosinophil % 3.4 % (0.00-5.0); Eosinophil (Absolute #) 0.27 (0-0.5); Granulocyte Absolute (ANC) 4.36 (1.4-6.9); Granulocytes % 55.4 % (36.0-66.0); Hematocrit 29.7 % (35-47); Hemoglobin 9.6 gm/dl (12.0-16.0); Lymphocyte (Absolute #) 2.65 (1.0-4.6); Lymphocytes % 33.7 % (24.0-44.0); Mean Cell Volume 93.4 fl (78-100); Mean Corpuscular Hgb Concent. 32.3 g/dl (32-36); Mean Platelet Volume 11.2 fl (6-9.5); Monocyte (Absolute #) 0.58 (0.0-1.3); Monocytes % 7.4 % (0.0-12.0); Platelet Count 195 K/mm3 (150-450); Red Blood Count 3.18 M/mm3 (4.1-5.4); Red Cell Distribution Width 13.6 % (11.5-14.0); White Blood Count 7.9 K/mm3 (4.0-10.5)
[2019-05-11 21:20] LABS: Mean Corpuscular Hemoglobin 30.1 pg (26-32)
[2019-05-12] MEDS: NORCO 5/325 MG PO PRN ×5 (01:01→17:11)
[2019-05-12] MEDS: MOTRIN 400 MG PO PRN ×3 (03:02→15:02)
[2019-05-12 03:16] VITALS: O2SAT 98
[2019-05-12] MEDS: Colace 100 MG PO SCH (09:02)
[2019-05-12] MEDS: FERREX 150 PO SCH (09:02)
--- NOTE | 2019-05-12 09:38 | PCM.DS ---
Discharge Summary Date of Admission: 05/09/19 10:19 Admitting Physician: ALLISON MORELOS Consults: Consults on Case 05/09/19 10:18 Notify Anesthesia Provider PRN 05/09/19 12:48 Notify Anesthesia Provider ROUTINE Notify Physician OF ADMISSION Primary Care Provider: ALLISON MORELOS Allergies Allergies No Known Drug Allergies Allergy (Verified 04/28/19 15:16) Hospital Summary - Hospital Course Hospital Course: Pt was admitted as 29 yo at 39w 5d for IOL due to term and GDM. She had elevated bp at her last office visit, 142 systolic. She was given cervadil; it was removed early d/t pain and her cervix was 4-5cm dilated. I came to rupture her fluids; there was a bulging bag, unable to feel presenting part. I checked the presenting part with bedside ultrasound and baby was vertex. After fluid rupture, the head was felt to be asynclitic with presenting hand as well. team was called; Dr. Villalba agreed with evaluation and pt was taken to . Baby actually had face presentation. Apgars were 1 at 1 min, 8 at 5 min, and 9 at 10 min. Pt was noted yesterday morning to have Hgb 6.7 - was given 2 units PRBC and today here hgb is > 9. Will discharge to home today; f/u in 1 wk. - Vitals & Intake/Output Vital Signs: Vital Signs Temperature 98.2 F 05/12/19 03:00 Pulse Rate 90 05/12/19 03:00 Respiratory Rate 18 05/12/19 03:00 Blood Pressure 122/83 05/12/19 03:00 O2 Sat by Pulse Oximetry 98 05/12/19 03:00 Intake & Output: Intake & Output 05/09/19 05/10/19 05/11/19 05/12/19 11:59 11:59 11:59 11:59 Intake Total 5117 2150 2832 Output Total 1950 Balance 3167 2150 2832 Weight 77.111 kg 77.111 kg - Lab Result Diagrams: 05/11/19 21:00 Lab Results-Last 24 Hrs: Accuchecks Date 05/11/19 Time 11:20 Accucheck Value: 89 Lab Results-Last 24 Hours 05/11/19 05/11/19 05/11/19 Range/Units 05:00 05:00 21:00 WBC 7.9 (4.0-10.5) K/mm3 RBC 3.18 L (4.1-5.4) M/mm3 Hgb 9.6 L D (12.0-16.0) gm/dl Hct 29.7 L (35-47) % MCV 93.4 (78-100) fl MCH 30.1 (26-32) pg MCHC 32.3 (32-36) g/dl RDW 13.6 (11.5-14.0) % Plt Count 195 (150-450) K/mm3 MPV 11.2 H (6-9.5) fl Gran % 55.4 (36.0-66.0) % Eos # (Auto) 0.27 (0-0.5) Absolute Lymphs (auto) 2.65 (1.0-4.6) Absolute Monos (auto) 0.58 (0.0-1.3) Lymphocytes % 33.7 (24.0-44.0) % Monocytes % 7.4 (0.0-12.0) % Eosinophils % 3.4 (0.00-5.0) % Basophils % 0.1 (0.0-0.4) % Absolute Granulocytes 4.36 (1.4-6.9) Basophils # 0.01 (0-0.4) ABO Group A Rh Factor POSITIVE Antibody Screen NEGATIVE (NEGATIVE) Crossmatch COMPATIBLE COMPATIBLE (COMPATIBLE) Micro Results-Entire Visit: Microbiology 05/09/19 13:28 Urine Culture - Final Catherized NO GROWTH Accuchecks Date 05/11/19 Time 11:20 Accucheck Value: 89 - Procedures and Test Procedures and Tests throughout Hospitalization: Therapy Orders & Screens 05/09/19 13:38 Standby STAT Comment: Diagnosis: Induction Discharge Exam General Appearance: no apparent distress, alert Neurologic Exam: oriented x 3, cooperative Eye Exam: eyes nml inspection Ears, Nose, Throat Exam: moist mucous membranes Neck Exam: normal inspection Respiratory Exam: normal breath sounds, lungs clear, No crackles/rales, No rhonchi, No wheezing Cardiovascular Exam: regular rate/rhythm, normal heart sounds, No murmur Gastrointestinal/Abdomen Exam: soft, normal bowel sounds, tenderness (fundus), other (fundus firm under umbilicus. wound intact; there is some evidence of bleeding on R side of incision but it is dry currently) Extremity Exam: normal inspection, swelling (trace LE edema bilat) Skin Exam: normal color, warm, dry, No rash Wound Assessment: Skin/Wound Assessment Wound/Incision Assessment Start: 05/11/19 09: 08 Text: Status: Active Freq: Q6H Protocol: Document 05/12/19 02:00 PDT (Rec: 05/12/19 03:22 PDT [email or web address]) Wound/Incision Assessment Anterior Abdomen Wound Type Incision Dressing Status Dry & Intact Drainage Amount Minimal Drainage Description Serosanguineous General Appearance Well Approximated Open to air Clean/Dry Wound Photo Photo Taken No Final Diagnosis/Problem List - Final Discharge Diagnosis/Problem (1) delivery delivered Current Visit: Yes Status: Acute Assessment & Plan: Doing well. Home on pain meds. f/u in 1 wk. Code(s): O82 - ENCOUNTER FOR DELIVERY WITHOUT INDICATION (2) Anemia Current Visit: Yes Status: Acute Assessment & Plan: Home on iron. Code(s): D64.9 - ANEMIA, UNSPECIFIED (3) Gestational diabetes Current Visit: No Status: Acute Assessment & Plan: will recheck BS post Code(s): O24.419 - GESTATIONAL DIABETES MELLITUS IN , UNSP CONTROL - Discharge Disposition: Home, Self-Care Condition: Good Prescriptions: New Ferrous Sulfate 325 mg [Feosol 325 mg] 325 mg PO DAILY #30 tablet Ibuprofen 600 mg PO TID PRN #35 tablet PRN Reason: Pain Hydrocodone/APAP 5-325 Tab^^^ [[place] 5-325 Tablet^^^] 1 tab PO Q4H PRN PRN # 30 tablet MDD 6 PRN Reason: Pain Continue Vits W-Ca,Fe,FA(<1Mg) [] 1 tab PO DAILY Ranitidine HCl 150 mg PO BIDPRN PRN PRN Reason: heartburn Follow up with: ALLISON MORELOS [Primary Care Provider] - 1 Week
[2019-05-12 17:49] VITALS: BP 137/80; PULSE 90
== END 2019-05-12 20:13 | disposition home or self-care (01) | DRG 788 ==
LOC: OB 10:19 → OBSVTOIN 05-09 10:19
PROVIDERS: ADMIT Family Medicine; ATTEND Family Medicine
PROC: 10D00Z1 Extraction of Products of Conception, Low, Open Approach (ICD-10-PCS; principal; 2019-05-09)
DX: O24.420 Gestational diabetes mellitus in childbirth, diet controlled (principal); O32.9XX0 Maternal care for malpresentation of fetus, unspecified, not applicable or unspecified; Z3A.39 39 weeks gestation of pregnancy; Z37.0 Single live birth; O90.81 Anemia of the puerperium; R42 Dizziness and giddiness
CPT/HCPCS: 36415; 36430; 62322; 64488; 76815; 76937; 76942; 80307; 81001; 82962; 85025; 85610; 85730; 86850; 86900; 86901; 86922; 87086; 87340; 88307; 94799; G0378; J0690; J2250; J2274; J2590; J2795; L0625; P9016; A9270-GY

== ENCOUNTER 2019-05-08 10:59 | Observation (INO) | payer OTHER | END 2019-05-08 12:15 | disposition home or self-care (01) | LOC: RAD 10:59 → OB 11:00 ==